=== PATIENT | male | born 1970 | race Caucasian/White ===

== ENCOUNTER 2017-04-05 20:07 | Emergency (ER) | payer SELFPAY ==
[2017-04-05] MEDS ORDERED: NACL 0.9% 500 ML 500 ML IV ONE (20:40)
[2017-04-05] MEDS ORDERED: DECADRON IM ONE (20:42)
[2017-04-05] MEDS ORDERED: NACL 0.9% 1000 ML IV ONE (20:42)
[2017-04-05] MEDS ORDERED: ROCEPHIN/NS 2 GM/100 ML 2 GM/100 ML BAG IV ONE (20:42)
[2017-04-05] MEDS ORDERED: VANCOMYCIN VIAL IV ONE (20:44)
[2017-04-05] MEDS ORDERED: ZOVIRAX IV STA (20:44)
[2017-04-05] MEDS ORDERED: BOOSTRIX IM ONE (20:44)
--- NOTE | 2017-04-05 20:46 | Emergency Department Report ---
ED General Adult HPI - General Chief complaint: Altered Mental Status Stated complaint: R/O SEIZURE Source: patient, EMS (ems notes not available at time of chart dictation), RN notes reviewed Mode of arrival: Stretcher Limitations: Altered Mental Status - History of Present Illness Initial comments: This is a middle-aged man, age approximately in the mid 40s, who is not previously known to me who is brought to the hospital by EMS for altered mental status. As per triage nurse documentation, the patient was found in a parking lot near truck with altered mental status and had urinated on himself. Patient did not speak to EMS on site. Patient was found with a beer in his hand, and Pepto-Bismol around his mouth. The patient speaks some [place], and follow some commands. The patient indicates that his abdomen hurts, but cannot further describe the nature of this pain. He cannot describe exacerbating or relieving factors. He is not able to give me his name. He indicates that he lives locally. He indicates that he has not tried to commit suicide or overdose. History is limited because nobody else is available for collateral information, the patient does not possess any identifying information on him, and is altered, and delirious. The patient is not able to describe exacerbating or relieving factors. -: unknown Radiation: other (as per history of present illness) Quality: other (as per history of present illness) Consistency: other (as per history of present illness) Improves with: other (as per history of present illness) Worsens with: other (history of present illness) Associated Symptoms: other (History of present illness) - Related Data Allergies Allergy/AdvReac Type Severity Reaction Status Date / Time No Known Allergies Allergy Verified 04/05/17 22:06 ED Review of Systems ROS: Stated complaint: R/O SEIZURE Other details as noted in HPI Comment: Unobtainable due to pts medical conditions ED Past Medical Hx - Social History Smoking Status: Unknown if ever smoked ED Physical Exam - General Limitations: Altered Mental Status General appearance: in no apparent distress - Head Head exam: Present: other (numerous ecchymoses are noted around the skull.) - Eye Eye exam: Present: normal appearance, PERRL, EOMI - ENT ENT exam: Present: normal exam, normal orophraynx, mucous membranes moist, normal external ear exam (pinkish material is noted around the oropharynx. Pinkish material noted around the ears. No obvious foreign bodies noted in the ears or in the mouth.) - Neck Neck exam: Present: normal inspection, full ROM - Respiratory Respiratory exam: Present: normal lung sounds bilaterally. Absent: respiratory distress, wheezes, rales, rhonchi, stridor, chest wall tenderness, accessory muscle use, decreased breath sounds, prolonged expiratory - Cardiovascular Cardiovascular Exam: Present: normal rhythm, tachycardia, normal heart sounds. Absent: systolic murmur, diastolic murmur, rubs, gallop - GI/Abdominal GI/Abdominal exam: Present: soft, normal bowel sounds. Absent: distended, tenderness, guarding, rebound, rigid, pulsatile mass - Rectal Rectal exam: Present: deferred - Extremities Exam Extremities exam: Present: normal inspection, full ROM, normal capillary refill. Absent: pedal edema, joint swelling, calf tenderness - Back Exam Back exam: Present: normal inspection, full ROM. Absent: tenderness, CVA tenderness (R), CVA tenderness (L), muscle spasm, paraspinal tenderness, vertebral tenderness - Neurological Exam Neurological exam: Present: altered, other (the patient moves 4 extremities spontaneously and to command. He is noted by nursing staff to be walking around. He follows some commands. There is no obvious facial droop.) - Psychiatric Psychiatric exam: Present: normal affect, normal mood - Skin Skin exam: Present: warm, abrasion, ecchymosis. Absent: rash ED Course Vital Signs 04/05/17 04/05/17 20:46 22:59 Temperature 101.2 F H Pulse Rate 137 H 123 H Respiratory 21 14 Rate Blood Pressure 190/112 189/111 [Right] O2 Sat by Pulse 95 97 Oximetry - Reevaluation(s) Reevaluation #1: 04/05/17 21:32 Differential diagnosis: Intracranial injury, cervical spine injury, meningitis, encephalitis, pneumonia, intra-abdominal infection, urinary tract infection Assessment and plan: Middle-aged male with altered mental status, fever and tachycardia, evidence of blunt head trauma. He will placed on the sepsis pathway. He will be placed on isolation precautions, he will be treated empirically with acyclovir, ceftriaxone, steroids, vancomycin. He will be given normal saline at 30 mL/kg as an IV bolus. He will be given acetaminophen for his fever. He will be given a tetanus vaccination. He did require Valium as he was getting up and walking around, and was at risk for falling. The patient indicated that he is not homicidal or suicidal. His serum toxicology study is negative. X-ray of the chest is nonspecific, noncontrast CT scan of the chest, abdomen, pelvis are ordered. Noncontrast CT scan of the brain and cervical spine are ordered. Reevaluation #2: 04/05/17 23:[address] scan of the brain demonstrates right-sided temporal hemorrhage. CT scan of the cervical spine is negative. CT scan of the chest shows cavitary upper lobe infiltrate. Uncertain if tuberculosis or neoplasm. Nodules noted in the adrenal glands. Patient found to be hypertensive. Antibiotic coverage broadened for azithromycin, patient is started on a Cardene drip, he is given Keppra. Head of the bed is elevated to 30. Given presence of ecchymosis intracranial hemorrhage, uncertain if this is a traumatic bleed, or otherwise. Therefore, a page has been placed to [facility] to discuss with the trauma service to arrange transfer. Most likely the patient will require transfer to medical ICU with neurosurgery and or trauma surgery consultation. Given these findings, presence of intracranial hemorrhage, patient may have elevated intracranial pressure, and especially given x-ray of the chest findings , I don't believe the patient requires emergent spinal tap at this time. 04/05/17 23:07 Reevaluation #3: 04/05/17 23:16 Dr Gastelum, the trauma surgeon at [facility] accepts patient as a transfer There is no family at this time, the patient is not able to give informed consent, given the complexity and acuity of the patient's conditions, given at this hospital does not have trauma surgery, neurosurgery available for consultation, it is in the patient's best interest to be transferred to a high level of care such as the receiving facility. Therefore, I am administratively consenting the patient for transfer. ED Medical Decision Making - Lab Data Result diagrams: 04/05/17 20:40 04/05/17 20:40 Vital Signs 04/05/17 20:46 Temperature 101.2 F H Pulse Rate 137 H Respiratory 21 Rate Blood Pressure 190/112 [Right] O2 Sat by Pulse 95 Oximetry Lab Results 04/05/17 04/05/17 04/05/17 Range/Units 20:40 20:40 20:40 WBC 8.5 (4.5-11.0) K/mm3 RBC 3.38 L (3.65-5.03) M/mm3 Hgb 12.6 (11.8-15.2) gm/dl Hct 38.0 (35.5-45.6) % MCV 112 H (84-94) fl MCH 37 H (28-32) pg MCHC 33 (32-34) % RDW 13.4 (13.2-15.2) % Lymph % (Auto) 3.2 L (13.4-35.0) % [place] % (Auto) 7.5 H (0.0-7.3) % Eos % (Auto) 0.1 (0.0-4.3) % Baso % (Auto) 0.7 (0.0-1.8) % Lymph # 0.3 L (1.2-5.4) K/mm3 [place] # 0.6 (0.0-0.8) K/mm3 Eos # 0.0 (0.0-0.4) K/mm3 Baso # 0.1 (0.0-0.1) K/mm3 Seg Neutrophils % 88.5 H (40.0-70.0) % Seg Neutrophils # 7.5 (1.8-7.7) K/mm3 PT 14.9 (12.2-14.9) Sec. INR 1.11 (0.87-1.13) Sodium 141 (137-145) mmol/L Potassium 4.1 (3.6-5.0) mmol/L Chloride 91.4 L (98-107) mmol/L Carbon Dioxide 18 L (22-30) mmol/L Anion Gap 36 mmol/L BUN 12 (9-20) mg/dL Creatinine 0.8 (0.8-1.5) mg/dL Estimated GFR > 60 ml/min BUN/Creatinine Ratio 15.00 % Glucose 349 H (75-100) mg/dL Lactic Acid (0.7-2.0) mmol/L Calcium 9.0 (8.4-10.2) mg/dL Total Bilirubin 3.70 H (0.1-1.2) mg/dL AST 116 H (5-40) units/L ALT 32 (7-56) units/L Alkaline Phosphatase 116 (35-129) units/L Total Creatine Kinase (55-170) units/L Troponin T (0.00-0.029) ng/mL Total Protein 9.0 H (6.3-8.2) g/dL Albumin 3.8 L (3.9-5) g/dL Albumin/Globulin Ratio 0.7 % Salicylates (2.8-20.0) mg/dL Acetaminophen (10.0-30.0) ug/mL Plasma/Serum Alcohol (0-0.07) gm% 04/05/17 04/05/17 04/05/17 Range/Units 20:40 20:40 20:40 WBC (4.5-11.0) K/mm3 RBC (3.65-5.03) M/mm3 Hgb (11.8-15.2) gm/dl Hct (35.5-45.6) % MCV (84-94) fl MCH (28-32) pg MCHC (32-34) % RDW (13.2-15.2) % Lymph % (Auto) (13.4-35.0) % [place] % (Auto) (0.0-7.3) % Eos % (Auto) (0.0-4.3) % Baso % (Auto) (0.0-1.8) % Lymph # (1.2-5.4) K/mm3 [place] # (0.0-0.8) K/mm3 Eos # (0.0-0.4) K/mm3 Baso # (0.0-0.1) K/mm3 Seg Neutrophils % (40.0-70.0) % Seg Neutrophils # (1.8-7.7) K/mm3 PT (12.2-14.9) Sec. INR (0.87-1.13) Sodium (137-145) mmol/L Potassium (3.6-5.0) mmol/L Chloride (98-107) mmol/L Carbon Dioxide (22-30) mmol/L Anion Gap mmol/L BUN (9-20) mg/dL Creatinine (0.8-1.5) mg/dL Estimated GFR ml/min BUN/Creatinine Ratio % Glucose (75-100) mg/dL Lactic Acid (0.7-2.0) mmol/L Calcium (8.4-10.2) mg/dL Total Bilirubin (0.1-1.2) mg/dL AST (5-40) units/L ALT (7-56) units/L Alkaline Phosphatase (35-129) units/L Total Creatine Kinase 385 H (55-170) units/L Troponin T (0.00-0.029) ng/mL Total Protein (6.3-8.2) g/dL Albumin (3.9-5) g/dL Albumin/Globulin Ratio % Salicylates < 0.3 L (2.8-20.0) mg/dL Acetaminophen < 15.0 (10.0-30.0) ug/mL Plasma/Serum Alcohol (0-0.07) gm% 04/05/17 04/05/17 04/05/17 Range/Units 20:40 20:40 20:42 WBC (4.5-11.0) K/mm3 RBC (3.65-5.03) M/mm3 Hgb (11.8-15.2) gm/dl Hct (35.5-45.6) % MCV (84-94) fl MCH (28-32) pg MCHC (32-34) % RDW (13.2-15.2) % Lymph % (Auto) (13.4-35.0) % [place] % (Auto) (0.0-7.3) % Eos % (Auto) (0.0-4.3) % Baso % (Auto) (0.0-1.8) % Lymph # (1.2-5.4) K/mm3 [place] # (0.0-0.8) K/mm3 Eos # (0.0-0.4) K/mm3 Baso # (0.0-0.1) K/mm3 Seg Neutrophils % (40.0-70.0) % Seg Neutrophils # (1.8-7.7) K/mm3 PT (12.2-14.9) Sec. INR (0.87-1.13) Sodium (137-145) mmol/L Potassium (3.6-5.0) mmol/L Chloride (98-107) mmol/L Carbon Dioxide (22-30) mmol/L Anion Gap mmol/L BUN (9-20) mg/dL Creatinine (0.8-1.5) mg/dL Estimated GFR ml/min BUN/Creatinine Ratio % Glucose (75-100) mg/dL Lactic Acid 11.70 H* (0.7-2.0) mmol/L Calcium (8.4-10.2) mg/dL Total Bilirubin (0.1-1.2) mg/dL AST (5-40) units/L ALT (7-56) units/L Alkaline Phosphatase (35-129) units/L Total Creatine Kinase (55-170) units/L Troponin T < 0.010 (0.00-0.029) ng/mL Total Protein (6.3-8.2) g/dL Albumin (3.9-5) g/dL Albumin/Globulin Ratio % Salicylates (2.8-20.0) mg/dL Acetaminophen (10.0-30.0) ug/mL Plasma/Serum Alcohol < 0.01 (0-0.07) gm% - EKG Data -: EKG Interpreted by Me Rate: tachycardia - EKG Data When compared to previous EKG there are: previous EKG unavailable 04/05/17 21:34 Sinus tachycardia, borderline left-sided axis, atrial enlargement, poor R wave progression, abnormal EKG, not morphologically consistent with STEMI. - Radiology Data Radiology results: report reviewed, image reviewed X-ray of the chest demonstrates a hazy nodular density in the right apex medially, with possible bilateral hilar adenopathy. Otherwise, the lungs are clear of infiltrate. CT scans of the brain, cervical spine, chest, abdomen, pelvis are reviewed, please see notes. Critical Care Time: Yes Critical care time in (mins) excluding proc time.: 60 Critical care attestation.: If time is entered above; I have spent that time in minutes in the direct care of this critically ill patient, excluding procedure time. Critical Care Time: Critical care time includes multiple bedside evaluations, interpretation of laboratory studies, radiology studies, time spent managing critically ill patient with systemic inflammatory response syndrome, hemorrhagic brain bleed, hypertensive emergency requiring multiple medications, consultation with trauma surgery at receiving Hospital. This does not include procedure time. ED Disposition Clinical Impression: SIRS (systemic inflammatory response syndrome), Encephalopathy Disposition: [id number]-TRM GEN HOSP IP Is pt being admited?: No Condition: Critical
[2017-04-05 21:00] LABS: Basophils % (Auto) 0.7 % (0.0-1.8); Eosinophils % (Auto) 0.1 % (0.0-4.3); Hemoglobin 12.6 gm/dl (11.8-15.2); Mean Corpuscular HGB Conc 33 % (32-34); Mean Corpuscular Hemoglobin 37 pg (28-32); Red Blood Count 3.38 M/mm3 (3.65-5.03); Red Cell Distribution Width 13.4 % (13.2-15.2); White Blood Count 8.5 K/mm3 (4.5-11.0)
[2017-04-05] MEDS ORDERED: VANCOMYCIN PHARMACY TO DOSE IV SCH (21:00)
[2017-04-05] MEDS ORDERED: NACL 0.9% IV ONE (21:00)
[2017-04-05] MEDS ORDERED: VANCOMYCIN 1,500 MG in NACL 0.9% 500 ML 500 ML IV ONE (21:00)
[2017-04-05] MEDS ORDERED: ZOVIRAX IV ONE (21:00)
[2017-04-05 21:01] LABS: Mean Corpuscular Volume 112 fl (84-94)
--- NOTE | 2017-04-05 21:11 | XRay Report ---
FINAL REPORT EXAM: XR CHEST 1V AP HISTORY: possible Sepsis TECHNIQUE: AP portable view of the chest PRIORS: None. FINDINGS: Lines, tubes, and devices: N/A Lungs and pleura: Trachea is normal in position. In the medial right apex, there is a vague rounded density measuring 6.[address] is warranted. Otherwise, lungs are clear of infiltrate, pleural effusion, vascular congestion, or pneumothorax. Cardiomediastinal silhouette: There is prominence of the right hilum and the AP window. Possibility of underlying adenopathy should be considered. Heart is normal in size. Other: Bony structures are intact. IMPRESSION: Hazy nodular density in the right apex medially with possible bilateral hilar adenopathy. CT of the chest is warranted.
[2017-04-05 21:12] LABS: INR 1.11 (0.87-1.13)
[2017-04-05] MEDS ORDERED: VALIUM IV ONE ×2 (21:15→23:07)
[2017-04-05 21:16] LABS: Albumin 3.8 g/dL (3.9-5); Albumin/Globulin Ratio 0.7 %; Alkaline Phosphatase 116 units/L (35-129); Blood Urea Nitrogen 12 mg/dL (9-20); Carbon Dioxide 18 mmol/L (22-30); Chloride 91.4 mmol/L (98-107); Glucose 349 mg/dL (75-100); Sodium 141 mmol/L (137-145)
[2017-04-05] MEDS ORDERED: VALIUM ONE (21:22)
[2017-04-05 21:27] LABS: Alanine Aminotransferase 32 units/L (7-56); Anion Gap 36 mmol/L; Potassium 4.1 mmol/L (3.6-5.0)
[2017-04-05] MEDS ORDERED: TYLENOL PO ONE (21:27)
[2017-04-05 22:00] LABS: Platelet Count 75 K/mm3 (140-440)
--- NOTE | 2017-04-05 22:38 | Cat Scan Report ---
FINAL REPORT EXAM: CT HEAD/BRAIN WO CON HISTORY: Fever/Sepsis TECHNIQUE: Standard unenhanced CT of the head at 5.0 millimeter axial increments PRIORS: None. FINDINGS: There is a hyperdense ovoid focus in the right temporal lobe measuring 5.3 x 2.8 cm. This is consistent with an acute parenchymal hemorrhage. Small amount of low-density surrounding edema is seen. There is a small amount of mass effect on the right temporal horn of the lateral ventricle. No significant midline shift is seen. The ventricular system is otherwise normal in size and configuration. There is no evidence for parenchymal volume loss. There is no evidence for mass lesion, midline shift, or acute ischemia/ infarction. Visualized paranasal sinuses are clear. IMPRESSION: Acute hyperdense parenchymal hemorrhage involving the right temporal lobe. Minimal mass effect on the right temporal horn of the lateral ventricle is seen.
--- NOTE | 2017-04-05 22:43 | Cat Scan Report ---
FINAL REPORT EXAM: CT CERVICAL SPINE WO CON HISTORY: AMS TECHNIQUE: Standard CT cervical spine obtained at 2.5 millimeter axial increments. Coronal and sagittal reconstruction was also performed. PRIORS: None. FINDINGS: The vertebral bodies are intact. There is no evidence for acute fracture. There is no evidence for paravertebral soft tissue swelling. Alignment is maintained. There is ovoid density identified in the right apex of the lung. IMPRESSION: Negative CT of the cervical spine. No acute abnormality identified. Ovoid density in the right apex of the lung.
[2017-04-05] MEDS ORDERED: ZITHROMAX 500 MG in NACL 0.9% 250ML 250 ML IV ONE (22:57)
[2017-04-05] MEDS ORDERED: KEPPRA 1,000 MG/NS 0.75% 100ML 1,000 MG/100 ML BAG IV ONE (23:00)
[2017-04-05] MEDS ORDERED: CARDENE 50 MG in NACL 0.9% 250ML 230 ML IV SCH (23:00)
--- NOTE | 2017-04-05 23:00 | Cat Scan Report ---
FINAL REPORT EXAM: CT CHEST WO CON HISTORY: AMS lung mass ? PNA seen on recent CXR TECHNIQUE: Standard unenhanced CT of the chest at 2.5 mm axial increments. Coronal and sagittal reconstruction was also obtained. PRIORS: CXR 04/05/2017 at 0057 hours FINDINGS: There is a thick walled rounded focus in the right upper lobe posteriorly measuring 3.2 x 3.5 cm. This corresponds to the density seen on recent chest x-ray. There is internal cavitation. The wall measures approximately 1 cm in thickness. Findings are suspicious for a neoplasm versus infection. There is extensive alveolar nodular infiltrate or satellite nodules surrounding this focus extending inferiorly to the right hilum. In the left apex medially, there is a smaller rounded focus measuring 1.1 x 1.3 cm (axial image 29) which also has a thickened outer wall and internal cavitation. All of these findings can be consistent with infection, including tuberculosis, or neoplasm. There is no evidence for mediastinal, hilar, or axillary adenopathy. The esophagus is collapsed. The trachea is midline. Cardiovascular structures are within normal limits. Cardiac size and aorta are normal. Images through the lung bases include upper abdomen which show a 1.6 x 2.2 cm mass in the right adrenal gland. This is not hypodense and therefore, cannot be confirmed as benign. There is a vague rounded hypodense focus in the anterior aspect of the liver measuring 1.4 cm. This may represent a small cyst or hemangioma. However other etiologies are not excluded. The liver demonstrates a lobulated contour suggesting underlying cirrhosis. Serpiginous enlarged varices are noted around the distal esophagus and along the lesser and greater curvature of the stomach. The spleen is incompletely imaged. Bony structures show no focal abnormalities. No evidence for bony fracture is seen. IMPRESSION: 1. Thick walled cavitary lesion in the right apex with a smaller similar lesion in the left apex. Surrounding infiltrate extending from the right mass to the hilum is seen. These findings can be seen with both neoplasm and infection including TB. 2. Numerous findings in the upper lungs including probable underlying cirrhosis with varices 3. Nodule in the right adrenal gland cannot be confirmed as benign and therefore, a possible metastatic lesion from lung cancer is not excluded, given findings in the chest. 4. Small hypodensity in the liver which can be further evaluated with ultrasound.
--- NOTE | 2017-04-05 23:12 | Cat Scan Report ---
FINAL REPORT EXAM: CT ABDOMEN PELVIS WO CON HISTORY: Fever/Sepsis TECHNIQUE: Standard unenhanced CT of the abdomen and pelvis. Coronal and sagittal reconstruction was also performed. PRIORS: None. FINDINGS: Within the anterior aspect of the liver, there is a small vague rounded hypodense focus measuring 1.4 cm (axial image 321, series 2). This is nonspecific. It may represent a small hemangioma, cyst, or other focal lesion. There is contour lobulation noted throughout the liver, especially the left lobe. This finding is typically seen in cirrhosis. There are numerous serpiginous enlarged varices around the distal esophagus and the lesser and greater curvatures of the stomach. There is a 1.6 x 2.2 cm mass in the right adrenal gland. This is not hypodense to confirm benignity. Therefore, benign and malignant adrenal mass etiologies should be considered with the differential including a metastatic lesion from lung cancer. There are few small hyperdense foci in the region of the medullary pyramids of both kidneys. The these could represent tiny nonobstructing calculi versus is medullary nephrocalcinosis suggesting medullary sponge kidney. Within the abdomen, the spleen, pancreas, and left adrenal gland are unremarkable. Small gallstone in the gallbladder is noted. No evidence for retroperitoneal or pelvic lymphadenopathy is seen. The bowel loops have normal caliber. No fluid collection, inflammatory change, or free air is seen within the abdomen or pelvis. Within the pelvis, the bladder is collapsed containing a Hernandez catheter. The prostate is normal. No evidence for mass or lymphadenopathy is seen in the pelvis. Images through the upper abdomen include the lung bases which are expanded and clear. Bony structures show no focal abnormalities and are intact. IMPRESSION: 1. No acute intra-abdominal process noted 2. Evidence for hepatic cirrhosis with varices involving the distal esophagus and around the stomach. 3. Right adrenal mass which cannot be confirmed as benign. 4. Hypodense focus in the liver which should be followed up with ultrasound to evaluate for cyst, hemangioma, or other focal abnormality 5. Hyperdense tiny foci in the kidneys which may represent tiny nonobstructing calculi versus medullary nephrocalcinosis suggesting medullary sponge kidney. 6. Cholelithiasis
[2017-04-05 23:39] LABS: Bilirubin,Urine NEG (Negative); Blood,Urine LG (Negative); Ketones,Urine 20 mg/dL (Negative); Leukocyte Esterase,Urine NEG (Negative); Nitrite,Urine NEG (Negative); Urobilinogen,Urine < 2.0 mg/dL (<2.0)
[2017-04-06] MEDS ORDERED: ATIVAN IV ONE (01:15)
[2017-04-06 01:59] VITALS: BP 124/76
== END 2017-04-06 02:07 | disposition short-term general hospital (02) ==
LOC: ED 20:07
DX: A41.9 Sepsis, unspecified organism (principal); R65.10 Systemic inflammatory response syndrome (SIRS) of non-infectious origin without acute organ dysfunction; G93.40 Encephalopathy, unspecified
CPT/HCPCS: 36415; 51701; 70450; 71010; 71250; 72125; 74176; 80053; 81001; 82140; 82550; 82805; 84484; 85025; 85610; 87040; 90715; 96365; 96367; 96368; 96372; 96375; 96376; 99291; G0480; J0133; J0456; J0696; J1100; J3360; J3370; J7030; J7040; J7050; 80320